=== PATIENT | female | born 1985 | race Caucasian/White ===

== ENCOUNTER 2020-06-08 17:02 | Emergency (ER) | payer MEDICAID ==
[~2020-06-08] VITALS: Ht 170.2 cm; Wt 78.0 kg
[2020-06-08 17:04] VITALS: BP 121/85
== END 2020-06-08 21:16 | disposition left against medical advice (07) ==
LOC: ER 17:02
DX: R10.9 Unspecified abdominal pain (principal); Z53.21 Procedure and treatment not carried out due to patient leaving prior to being seen by health care provider
CPT/HCPCS: 93005